=== PATIENT | male | born 1980 | race Caucasian/White ===

== ENCOUNTER 2020-01-30 20:22 | Emergency (ER) | payer MEDICAID, OTHER ==
[~2020-01-30] VITALS: Ht 170.2 cm; Wt 81.7 kg
[2020-01-30] MEDS ORDERED: FLUORESCEIN OPHTHALMIC 1 MG STRIP ONE (20:27)
[2020-01-30] MEDS ORDERED: PROPARACAINE OPHTH 0.5%, 15ML ONE (20:28)
== END 2020-01-30 21:10 | disposition home or self-care (01) ==
LOC: ED 21:01
DX: T15.01XA Foreign body in cornea, right eye, initial encounter (principal); X58.XXXA Exposure to other specified factors, initial encounter; Y93.89 Activity, other specified; Y92.89 Other specified places as the place of occurrence of the external cause; Y99.8 Other external cause status
CPT/HCPCS: 65222; 99284